=== PATIENT | female | born 1965 | race Caucasian/White ===

== ENCOUNTER → 2016-07-03 | Outpatient (CLI) | payer OTHER ==
--- NOTE | 2016-07-03 09:08 | MA ---
Screening Digital Mammogram With Tomosynthesis and iCAD - July 03, 2016 Indication: Routine screening. Technique: Standard digital CC projections were obtained. Digital breast tomosynthesis was performed in the MLO projection with reconstruction at 1.0 mm slice thickness. Composite MLO views were recons tructed. This examination was processed by the iCAD computer-aided detection system. Comparison: May 2015, and April 2013. Breast density: Type C. Findings: CAD was reviewed. A focal obscured asymmetry in the deep upper-outer left breast 1 o'clock position, 4 cm superior to the nipple is evident only on the tomosynthesis images 10 through 25 of th e thin section tomosynthesis acquisition. No correlate on the CC projection. Negative right mammogram s. Impression: Partially obscured focal asymmetry in the deep upper left breast 1 o'clock position. BI-RADS 0: Needs additional imaging evaluation. Recommendation: Recommend spot-compressed MLO, exaggerated lateral CC and true lateral views of the left breast and proceed with left breast ultrasound at discretion of the interpreting radiologist. The patient's information is entered into a reminder system with a target due date for her next mammo gram. [facility] will send a result letter to the patient.
== END ==
LOC: FIMAGING 08:09
DX: Z12.31 Encounter for screening mammogram for malignant neoplasm of breast (principal)
CPT/HCPCS: G0202

== ENCOUNTER → 2016-07-12 | Outpatient (CLI) | payer OTHER ==
--- NOTE | 2016-07-12 10:44 | MA ---
Diagnostic Digital Left Mammogram History: Density deep in the left breast projecting behind the lower left pectoral muscle. Comparison: Screening mammogram July 03, 2016, May 2015, April 2013 and May 2009. Technique: A true lateral view, CC views exaggerating the inner and outer left breast and an oblique lateral view spot film. Breast Density: C Findings: A density persists overlying the lowest portion of the left pectoral muscle. There has been similar but not exactly the same density in this general area on prior mammograms.. Impression: We will proceed to ultrasound of the left breast for further evaluation. BI-RADS: Category 0 . Additional imaging with ultrasound.
--- NOTE | 2016-07-12 11:17 | US ---
Left Breast Ultrasound History: Developing density deep in the left upper inner quadrant Technique: I first performed a directed physical examination. This was followed by ultrasound exam with a high frequency linear transducer. Findings: On physical examination a small nodule at the 10:00 radial 7 cm from the nipple was not pal pable. On ultrasound this nodule correlates to the mammographic density and measures approximately 6. 5 x 5.2 x 5.4 mm.. It is nonvascular and Doppler analysis. It is directly in front of the pectoral mu scle. Impression: A suspicious sonographic nodule correlates to the mammographic density. Differential diag nosis includes small breast cancer, fibroadenoma or complex cyst. Recommendation: Ultrasound directed vacuum assisted core biopsy for histologic evaluation followed by clip placement. BI-RADS 4. Suspicious. Results and recommendation discussed with the patient in detail, who was given information about sche duling the biopsy. It is reasonable to schedule this biopsy a few weeks after her impending back surg thea next week. A message was left for Dr. Mcgowan at 11:14 AM.
== END ==
LOC: FIMAGING 09:25
PROVIDERS: ATTEND Obstetrics & Gynecology
DX: N63 Unspecified lump in breast (principal)
CPT/HCPCS: G0206

== ENCOUNTER 2016-07-17 08:32 | Observation (INO) | payer OTHER ==
--- NOTE | 2016-07-17 08:43 | CPEKG ---
Heart Rate: 41 RR Interval: 1463 P-R Interval: 224 QRSD Interval: 90 QT Interval: 444 QTC Interval: 367 P Nenzel: 45 QRS Nenzel: 29 T Wave Nenzel: 80 EKG Severity - ABNORMAL ECG - EKG Impression: SINUS BRADYCARDIA EKG Impression: FIRST DEGREE AV BLOCK EKG Impression: BORDERLINE R WAVE PROGRESSION, ANTERIOR LEADS Electronically Signed By: Mario eD Luna 17-Jul-2016 15:51:41
--- NOTE | 2016-07-17 08:58 | EDPHY ---
HPI/HX/ROS/PE/MDM Narrative: Chief complaint: Syncope HPI: 51-year-old female with a known history of bradycardia who is 2 days status post microdiskectomy and has been taking oxycodone the last 2 days, last again at 6 o'clock last night. Patient states she has been feeling constipated side not take any further. Did take Benadryl last night before going to bed. This morning she was having increasing abdominal gas pains sitting on the toilet when she had a gas pain and she had a syncopal episode. She fell to the floor. Denies injury. Does not know how long she was unconscious for. Patient was noted to be bradycardic in the 40s. She does state that she was seen by cardiology by Dr. jm temple about 10 years ago but has never followed up. She has a significant family history of bradycardia. Her father is currently on his 3rd pacemaker. Older sister also has a pacemaker in place for familial bradycardia. Denies any other recent illness. No fevers or chills. No nausea or vomiting. No headache. ROS: 10 point Review of Systems is negative except as noted in the HPI. Physical exam: Gen: Awake, Alert, No Distress HEENT: Nose: no rhinorrhea Eyes: PERRLA, EOMI Mouth: Moist mucosa Neck: Supple, no JVD Chest: nontender, lungs clear to auscultation Heart: S1, S2 normal, no murmur, bradycardic to the rate of 40 Abd: Soft, non-tender, no guarding Back: no CVA tenderness, no midline tenderness Ext: no edema, non-tender Skin: no rash Neuro: CN II-XII intact, Sensation grossly intact, Strength 5/5 in bilateral upper and lower extremities ED Course: ECG: Sinus bradycardia with a rate of 41. She is in 1st degree AV block. No acute ST or T-wave changes. 51-year-old female with chronic bradycardia who had a syncopal went and is bradycardic here today. I suspect that she has underlying chronic bradycardia with vasovagal syncope today. Interestingly she has a strong family history of bradycardia both her father and her sister have pacemakers in place. She the otherwise has a benign exam here. She is constipated secondary to her narcotics for her recent back surgery. She is certainly at risk for further episodes of vasovagal syncope. I have discussed with Dr. Maria, hospitalist. Will admit to Dr. Negrete to [facility] for further monitoring and evaluation - Data Points Laboratory Results: Laboratory Results 07/17/16 08:30 07/17/16 08:30 WBC 7.08 10^3/uL (3.80-9.50) RBC 4.17 L 10^6/uL (4.18-5.33) Hgb 13.4 g/dL (12.6-16.3) Hct 39.7 % (38.0-47.0) MCV 95.2 fL (81.5-99.8) MCH 32.1 pg (27.9-34.1) MCHC 33.8 g/dL (32.4-36.7) RDW 12.6 % (11.5-15.2) Plt Count 197 10^3/uL (150-400) MPV 10.1 fL (8.7-11.7) Neut % (Auto) 49.6 % (39.3-74.2) Lymph % (Auto) 38.6 % (15.0-45.0) [place] % (Auto) 8.5 % (4.5-13.0) Eos % (Auto) 1.7 % (0.6-7.6) Baso % (Auto) 0.6 % (0.3-1.7) Nucleat RBC Rel Count 0.0 % (0.0-0.2) Absolute Neuts (auto) 3.52 10^3/uL (1.70-6.50) Absolute Lymphs (auto) 2.73 10^3/uL (1.00-3.00) Absolute Monos (auto) 0.60 10^3/uL (0.30-0.80) Absolute Eos (auto) 0.12 10^3/uL (0.03-0.40) Absolute Basos (auto) 0.04 10^3/uL (0.02-0.10) Absolute Nucleated RBC 0.00 10^3/uL (0-0.01) Immature Gran % 1.0 % (0.0-1.1) Immature Gran # 0.07 10^3/uL (0.00-0.10) Troponin I < 0.012 ng/mL (0-0.034) General Time Seen by Provider: 07/17/16 08:42 Initial Vital Signs: Initial Vital Signs Temperature (C) 36.5 C 07/17/16 08:47 Heart Rate 40 L 07/17/16 08:47 Respiratory Rate 16 07/17/16 08:47 Blood Pressure 128/72 H 07/17/16 08:47 O2 Sat (%) 98 07/17/16 08:47 O2 Delivery Mode Room Air Allergies/Adverse Reactions: erythromycin base [Erythromycin Base] Allergy (Unknown, Verified 11/29/09 22:57) Home Medications: Medication Instructions Recorded SYNTHROID 88 mcg PO DAILY 11/29/09 oxyCODONE/APAP 5/325 [Percocet 1 - 2 tab PO .Q 4 - 6 HRS #12 tab 11/29/09 5/325] Departure - Departure Disposition: [facility] Inpatient Acute Clinical Impression: Syncope, Bradycardia, Heart block Condition: Fair
[2016-07-17 09:04] LABS: ABSOLUTE IMMATURE GRANULOCYTES 0.07 10^3/uL (0.00-0.10); ADD DIFF? NO; ADD MORPH? NO; ADD SCAN? NO; ATYPICAL LYMPHOCYTE FLAG 20 (0-99); FRAGMENT RBC FLAG 0 (0-99); HEMATOCRIT 39.7 % (38.0-47.0); HEMOGLOBIN 13.4 g/dL (12.6-16.3); LEFT SHIFT FLG 0 (0-99); LIPEMIA HEMOLYSIS FLAG 90 (0-99); MEAN CELL HEMOGLOBIN 32.1 pg (27.9-34.1); MEAN CELL HEMOGLOBIN CONCENTR. 33.8 g/dL (32.4-36.7); MEAN CELL VOLUME 95.2 fL (81.5-99.8); MEAN PLATELET VOLUME 10.1 fL (8.7-11.7); PLATELET CLUMPS FLAG 0 (0-99); PLATELET COUNT 197 10^3/uL (150-400); RED BLOOD CELL COUNT 4.17 10^6/uL (4.18-5.33); RED CELL DISTRIBUTION WIDTH 12.6 % (11.5-15.2)
[2016-07-17] MEDS ORDERED: POLYETHYLENE GLYCOL 3350 17 GM PKT PO ONE (10:29)
--- NOTE | 2016-07-17 11:55 | PDGENHP ---
History and Physical - Chief Complaint syncope - History of Present Illness 51-year-old female with a known history of bradycardia since she was a child who is 2 days status post microdiskectomy and has been taking oxycodone the last 2 days. Patient states she has been feeling constipated. This morning she was having increasing abdominal gas pains sitting on the toilet when she had a gas pain and she had a syncopal episode. She fell to the floor, + LOC. Denies injury. Does not know how long she was unconscious for. In the ED, she was noted to be bradycardic in the 40s. She does state that she was seen by cardiology by Dr. Carmona about 10 years ago but has never followed up. She reports extensive w/u including Echo and stress test which were normal. She has a significant family history of bradycardia. Her father is currently on his 3rd pacemaker. Older sister also has a pacemaker in place for familial bradycardia. Denies any other recent illness. No fevers or chills. No nausea or vomiting. No headache. ROS: 10 point Review of Systems is negative except as noted in the HPI. PMHX: Hypothyroidism, Back pain, bradycardia SocHx: denies tobacco or illicit drug use. Occasional ETOH FMHx: per above All/Meds: see med rec O: VS: HR now in the 50's, BP ok Physical exam: Gen: Awake, Alert, No Distress HEENT: Nose: no rhinorrhea Eyes: PERRLA, EOMI Mouth: Moist mucosa Neck: Supple, no JVD Chest: nontender, lungs clear to auscultation Heart: S1, S2 normal, no murmur, bradycardic Abd: Soft, non-tender, no guarding Back: no CVA tenderness, no midline tenderness Ext: no edema, non-tender Skin: no rash Neuro: CN II-XII intact, Sensation grossly intact, Strength 5/5 in bilateral upper and lower extremities Studies: EKG: Sinus bradycardia with a rate of 41. She is in 1st degree AV block. No acute ST or T-wave changes. History Information - Allergies/Home Medication List Allergies/Adverse Reactions: erythromycin base [Erythromycin Base] Allergy (Unknown, Verified 07/17/16 10:25) Hives Home Medications: Cephalexin [Keflex (*)] 500 mg PO QID 07/17/16 [Last Taken 07/17/16 06:00] FLUoxetine [Prozac 20 MG (*)] 20 mg PO DAILY 07/17/16 [Last Taken 07/16/16] Levothyroxine [Synthroid 75 mcg (*)] 75 mcg PO DAILY06 07/17/16 [Last Taken ] Methocarbamol [Robaxin 500 mg (*)] 500 mg PO QID PRN 07/17/16 [Last Taken 06:00] Temazepam [Restoril] 30 mg PO HS 07/17/16 [Last Taken 07/14/16] oxyCODONE IR [Oxycodone Ir (*)] 5 mg PO Q4 PRN 07/17/16 [Last Taken 07/16/16 18: 00] I have personally reviewed and updated: medical history, social history - Social History Smoking Status: Never smoked Physical Exam Temp Pulse Resp BP Pulse Ox 36.5 C 53 L 18 111/64 95 07/17/16 08:47 07/17/16 11:43 07/17/16 11:43 07/17/16 11:43 07/17/16 11:43 O2 (L/minute) 2 Lab Data & Imaging Review 07/17/16 08:30 WBC 7.08 10^3/uL (3.80-9.50) 07/17/16 08:30 RBC 4.17 10^6/uL (4.18-5.33) L 07/17/16 08:30 Hgb 13.4 g/dL (12.6-16.3) 07/17/16 08:30 Hct 39.7 % (38.0-47.0) 07/17/16 08:30 MCV 95.2 fL (81.5-99.8) 07/17/16 08:30 MCH 32.1 pg (27.9-34.1) 07/17/16 08:30 MCHC 33.8 g/dL (32.4-36.7) 07/17/16 08:30 RDW 12.6 % (11.5-15.2) 07/17/16 08:30 Plt Count 197 10^3/uL (150-400) 07/17/16 08:30 MPV 10.1 fL (8.7-11.7) 07/17/16 08:30 Neut % (Auto) 49.6 % (39.3-74.2) 07/17/16 08:30 Lymph % (Auto) 38.6 % (15.0-45.0) 07/17/16 08:30 [place] % (Auto) 8.5 % (4.5-13.0) 07/17/16 08:30 Eos % (Auto) 1.7 % (0.6-7.6) 07/17/16 08:30 Baso % (Auto) 0.6 % (0.3-1.7) 07/17/16 08:30 Nucleat RBC Rel Count 0.0 % (0.0-0.2) 07/17/16 08:30 Absolute Neuts (auto) 3.52 10^3/uL (1.70-6.50) 07/17/16 08:30 Absolute Lymphs (auto) 2.73 10^3/uL (1.00-3.00) 07/17/16 08:30 Absolute Monos (auto) 0.60 10^3/uL (0.30-0.80) 07/17/16 08:30 Absolute Eos (auto) 0.12 10^3/uL (0.03-0.40) 07/17/16 08:30 Absolute Basos (auto) 0.04 10^3/uL (0.02-0.10) 07/17/16 08:30 Absolute Nucleated RBC 0.00 10^3/uL (0-0.01) 07/17/16 08:30 Immature Gran % 1.0 % (0.0-1.1) 07/17/16 08:30 Immature Gran # 0.07 10^3/uL (0.00-0.10) 07/17/16 08:30 Troponin I < 0.012 ng/mL (0-0.034) 07/17/16 08:30 Assessment & Plan Assessment: Bradycardia (Acute) Heart block (Acute) Syncope (Acute) Plan: A/P #Syncope, likely vasovagal #Bradycardia (familial?), 1st degree block, chronic/long standing since childhood #Constipation #Recent Microdiskectomy #Hypothyroidism: on Levothyroxine Plan: -Admit Observation -She does not want to see a Wash Driller while inpatient but is open to seeing one as an outpatient -Telemetry, TTE, repeat EKG -Check BMP, Mg -SCD's -Full code total care time is 60 minutes
[2016-07-17] MEDS ORDERED: ACETAMINOPHEN 325 MG TAB PO PRN (12:03)
[2016-07-17] MEDS ORDERED: ONDANSETRON DISINTEGRATING 4 MG TAB PO PRN (12:03)
[2016-07-17] MEDS ORDERED: oxyCODONE IR 5 MG TAB PO PRN (12:08)
[2016-07-17] MEDS ORDERED: METHOCARBAMOL 500 MG TAB PO PRN (12:08)
[2016-07-17] MEDS: CEPHALEXIN 500 MG CAP PO SCH ×2 (15:15→21:07)
--- NOTE | 2016-07-17 15:56 | ECHO ---
[id number] + + [address] : : [place] [address] : : [phone] + Adult Echocardiographic Report + ---+ :Name: FRIENDZACH Date: 07/17/2016 01:37 PM : : Hospital Admission Number: [id number] : :: 1965 Gender: Female Height: 67 in : :Age: 51 yrs Race: WH Weight: 145 l b : :Reason For Study: Eval LV Fx : : BSA: 1.8 mete rs2: :History: Bradycardia, Syncope : + ---+ MMode/2D Measurements & Calculations IVSd: 0.65 cm LVIDd: 4.5 cm FS: 46.9 % Ao root diam: 3.2 cm LVPWd: 0.96 cm LVIDs: 2.4 cm EDV(Teich): 91.5 ml ACS: 1.9 cm ESV(Teich): 19.7 ml LA dimension: 2.9 cm EF(Teich): 78.4 % Normal Measurement Values: + + :LVIDd (3.5-5.7cm) IVSd (0.6-1.1cm) LVPWd (0.6-1.1cm) Aortic Root (2.0-3.7cm)Left Atrium (1.5-4.0cm): :LV Vol(d) (76-115ml) LV Vol(s) (29-48ml) Ejec Fraction (50-65%)PV Rafi (0.6- 1.2m/s) TV Rafi (0.4-1.0m/s) : :MV E Rafi (0.8-1.0m/s)MV A Rafi (0.3-1.0m/s)LVOT Rafi (0.7-1.2m/s) Asc Ao Rafi ( 0.9-1.8m/s) : + + Doppler Measurements & Calculations MV E max rafi: Ao V2 max: LV V1 max: PA V2 max: 104.0 cm/sec 144.0 cm/sec 103.0 cm/sec 61.5 cm/sec MV A max rafi: Ao max PG: LV V1 max PG: PA max P.7 cm/sec 8.3 mmHg 4.2 mmHg 1.5 mmHg MV E/A: 1.8 Left Ventricle The left ventricle is normal in size and function. There is normal left ventricular wall thickness. The left ventricular ejection fraction is normal. Ejection Fraction = 78%. No regional wall motion abnormalities noted. Right Ventricle The right ventricle is normal in size and function. Atria The left atrial size is normal. Right atrial size is normal. Mitral Valve The mitral valve is normal in structure and function. There is no evidence of mitral valve prolapse. There is no mitral valve stenosis. There is no mitral regurgitation noted. Tricuspid Valve There is trace tricuspid regurgitation. Right ventricular systolic pressure is normal. Aortic Valve The aortic valve is normal in structure and function. The aortic valve is trileaflet. There is no aortic stenosis. There is no aortic insufficiency. Pulmonic Valve The pulmonic valve is normal in structure and function. There is no pulmonic valvular regurgitation. Great Vessels The aortic root is normal size. Pericardium/Pleural There is no pericardial effusion. Bradycardia with an average of 44 bpm. Conclusion A complete two-dimensional transthoracic echocardiogram was performed (2D, M-mode, Doppler and color flow Doppler). The left ventricle is normal in size and function. There is normal left ventricular wall thickness. The left ventricular ejection fraction is normal. Ejection Fraction = 78%. No regional wall motion abnormalities noted. The right ventricle is normal in size and function. The left atrial size is normal. Right atrial size is normal. The mitral valve is normal in structure and function. There is trace tricuspid regurgitation. Right ventricular systolic pressure is normal. The aortic valve is normal in structure and function. The aortic valve is trileaflet. The pulmonic valve is normal in structure and function. The aortic root is normal size. There is no pericardial effusion. Bradycardia with an average of 44 bpm No prior echo Final Reading Physician: Dr Evelin Solano electronically signed on 07/17/2016 03:54 PM Ordering Physician: James Negrete Performed By: Fady Salazar, CS
[2016-07-17] MEDS ORDERED: TEMAZEPAM 15 MG CAP PO SCH (21:00)
[2016-07-17] MEDS ORDERED: NON-FORMULARY NEW DRUG (Temazepam [Restoril] 30 MG) PO SCH (21:00)
[2016-07-18] MEDS ORDERED: LEVOTHYROXINE 75 MCG TAB PO SCH (06:00)
[2016-07-18] MEDS: CEPHALEXIN 500 MG CAP PO SCH (06:11)
[2016-07-18 06:49] LABS: ANION GAP 8 mEq/L (8-16); CALCIUM 8.8 mg/dL (8.5-10.4); CARBON DIOXIDE 31 mEq/l (22-31); CHLORIDE 103 mEq/L (97-110); CREATININE 0.8 mg/dL (0.6-1.0); GLOMERULAR FILTRATION RATE > 60; GLUCOSE 87 mg/dL (70-100); MAGNESIUM 1.8 mg/dL (1.6-2.3); POTASSIUM 4.3 mEq/L (3.5-5.2); SODIUM 142 mEq/L (134-144)
[2016-07-18 07:17] VITALS: BP 109/71; PULSE 53; RESP 12; TEMP 98.9; O2SAT 93
[2016-07-18] MEDS ORDERED: POLYETHYLENE GLYCOL 3350 17 GM PKT PO SCH (09:00)
[2016-07-18] MEDS ORDERED: FLUoxetine 20 MG CAP PO SCH (09:00)
--- NOTE | 2016-07-18 09:45 | PDDCSUM ---
Discharge Summary Discharge Summary: 51 yo F with long standing Bradycardia and 1st degree block admitted after syncopal episode likely vasovagal. Please see dictated H&P. She was offered Cardiology consult and f/u but she declined. She has previously had a [employer] before. W/u here was unremarkable including telemetry which showed first degree block. she is able to ambulate w/o difficulty. The pt's vasovagal episode was likely due to straining and constipation. She was given Mirilax with resolution. TTE: unremarkable. Preserved LVEF. No structural abnormalities DDX: #Syncope, likely vasovagal #Bradycardia (familial?), 1st degree block, chronic/long standing since childhood #Constipation #Recent Microdiskectomy: continue with care as instructed by your physician #Hypothyroidism: on Levothyroxine. TSH was elevated at 6.68. She declined modification to her med. She wants to f/u with her PCP. EXAM: nad rrr cta b s/nt/nd no edema ddx med: see med recl total care time spent on discharge is 35 minutes
== END 2016-07-18 11:10 | disposition home or self-care (01) ==
LOC: EDUNIT# → F1N 12:01
PROVIDERS: ADMIT Family Medicine; ATTEND Family Medicine
DX: R55 Syncope and collapse (principal); I44.0 Atrioventricular block, first degree; R00.1 Bradycardia, unspecified; K59.00 Constipation, unspecified; E03.9 Hypothyroidism, unspecified; Z98.890 Other specified postprocedural states
CPT/HCPCS: 93005; 93306; 99285; G0378

== ENCOUNTER → 2016-07-24 | Outpatient (CLI) | payer OTHER ==
[~2016-07-24] MED LIST: THROMBIN (RECOMBINANT) 5,000 UNIT VIAL TP ONE
--- NOTE | 2016-07-24 15:28 | MA ---
Diagnostic Digital Diagnostic Left Digital Mammogram History: Post ultrasound guided breast biopsy. Evaluate marker placement. Comparison: Mammogram July 12 and July 03, 2016. Technique: Two views of the left breast. Findings: 2 ultrasound placed clips are present in the breast. The posterior and medial of the 2 clip s is the correct clip. This correlates to the density seen on the original oblique lateral mammogram. There is no significant postprocedural hematoma. Impression: Excellent postprocedural mammogram. Please disregard the more anterior of the 2 clips, wh ich is malpositioned.. Recommendation: Assuming a benign concordant diagnosis, then a six-month followup left breast mammogr am and ultrasound is recommended to reestablish a baseline. Results and recommendation were discussed with the patient.
--- NOTE | 2016-07-24 16:09 | US ---
Vacuum-Assisted Ultrasound-Guided Core Biopsy Left Breast History: Hypoechoic nodule 10 o'clock radial, 7 cm from the nipple, directly anterior to the pectoral muscle Technique: Following informed consent, the nodule within the 10 o'clock position of the left breast was localized from an inner approach. The skin was marked and then prepped and draped in sterile fas hion. Following local anesthesia with 1% lidocaine, lidocaine mixed with epinephrine was injected don per within the breast tissue. Using a 20-gauge spinal needle I attempted to elevate the nodule of the pectoral muscle using Marcaine however the nodule would not elevate. A small skin jennifer was placed on the skin surface, medial to the nodule, through which the 12-gauge Suros vacuum-assisted core biopsy needle was advanced with ultrasound guidance into the nodule. Numerous core biopsy samples were obta ined through the mass, sampling anterior, superior and inferior. A Suros titanium clip was then plac ed in the biopsy bed. The cirrhosis clip was not visible directly after deployment so a second clip w as deployed at the biopsy site and was identified at the correct location. Marcaine was then injected at the biopsy site for prolonged analgesia. Hemostasis was obtained, a sterile pressure dressing was applied and the patient sent for a postprocedural mammogram to document clip placement and to observ e for postprocedural hematoma formation. She was then discharged without complication, with instructi ons to call us with any thoughts, complications or concerns. Impression: 1. Successful ultrasound-guided core biopsy of nodule 10 o'clock left breast , 7 cm from the nipple . 2. Successful deployment of a second Suros titanium clip positioned immediately adjacent to the biop sy site. Please note that the first, more superficial clip was identified on the postprocedural mamm ogram and is malpositioned.
== END ==
LOC: FIMAGING 13:38
PROVIDERS: ATTEND Obstetrics & Gynecology
PROC: 0HBU3ZX Excision of Left Breast, Percutaneous Approach, Diagnostic (ICD-10-PCS; principal; 2016-07-24)
PROC: BH01ZZZ Plain Radiography of Left Breast (ICD-10-PCS; 2016-07-24)
DX: D24.2 Benign neoplasm of left breast (principal)
CPT/HCPCS: G0206

== ENCOUNTER → 2017-01-03 | Outpatient (CLI) | payer OTHER | LOC: FIMAGING 12:12 | PROVIDERS: ATTEND Obstetrics & Gynecology | DX: Z09 Encounter for follow-up examination after completed treatment for conditions other than malignant neoplasm (principal); R92.8 Other abnormal and inconclusive findings on diagnostic imaging of breast | CPT/HCPCS: G0206 ==

== ENCOUNTER → 2017-07-09 | Outpatient (CLI) | payer OTHER | LOC: FIMAGING 11:38 | PROVIDERS: ATTEND Obstetrics & Gynecology | DX: Z12.31 Encounter for screening mammogram for malignant neoplasm of breast (principal) ==

== ENCOUNTER → 2018-07-14 | Outpatient (CLI) | payer OTHER | LOC: FIMAGING 07:29 | PROVIDERS: ATTEND Obstetrics & Gynecology | DX: Z12.31 Encounter for screening mammogram for malignant neoplasm of breast (principal) ==

== ENCOUNTER → 2018-10-07 | Outpatient (CLI) | payer OTHER | LOC: FIMAGING 12:50 | PROVIDERS: ATTEND Internal Medicine | DX: Z13.820 Encounter for screening for osteoporosis (principal); E03.9 Hypothyroidism, unspecified; F32.9 Major depressive disorder, single episode, unspecified; F41.1 Generalized anxiety disorder; K80.20 Calculus of gallbladder without cholecystitis without obstruction ==